=== PATIENT | female | born 1955 | race Caucasian/White ===

== ENCOUNTER 2017-11-08 11:23 | Emergency (ER) | payer MEDICAID ==
[~2017-11-08] VITALS: Ht 152.4 cm; Wt 82.6 kg
[2017-11-08 11:27] VITALS: BP_SYST 152
[2017-11-08 12:29] VITALS: BP_SYST 142
== END 2017-11-08 12:25 | disposition home or self-care (01) ==
LOC: SED 11:23
DX: S93.401A Sprain of unspecified ligament of right ankle, initial encounter (principal); W18.40XA Slipping, tripping and stumbling without falling, unspecified, initial encounter; Y93.G1 Activity, food preparation and clean up; Y92.89 Other specified places as the place of occurrence of the external cause; Y99.8 Other external cause status
CPT/HCPCS: 99284

== ENCOUNTER 2020-10-09 14:34 | Emergency (ER) | payer OTHER, MEDICAID ==
[~2020-10-09] VITALS: Ht 152.4 cm; Wt 95.3 kg
[2020-10-09 14:35] VITALS: BP_SYST 118
[2020-10-09 15:40] VITALS: BP_SYST 118
== END 2020-10-09 15:40 | disposition home or self-care (01) ==
LOC: SED 14:34
DX: S82.492A Other fracture of shaft of left fibula, initial encounter for closed fracture (principal); Z90.710 Acquired absence of both cervix and uterus; W18.39XA Other fall on same level, initial encounter; Y93.89 Activity, other specified; Y92.89 Other specified places as the place of occurrence of the external cause; Y99.8 Other external cause status
CPT/HCPCS: 73564; 99284

== ENCOUNTER 2022-09-05 12:31 | Inpatient (IN) | payer OTHER, MEDICAID ==
[~2022-09-05] VITALS: Ht 154.9 cm; Wt 91.2 kg
[~2022-09-05 12:31] MED LIST: AMIO200T61 PO; APIX5TAB4 PO; FURO-149 PO; METO50TA7 PO; POTA-178 PO; SPIR50TA PO
[2022-09-05 13:36] VITALS: BP_SYST 186
[2022-09-05] MEDS ORDERED: NACL 0.9% 1,000 ML IV ONE (14:30)
[2022-09-05] MEDS ORDERED: FOLIC ACID 1 MG, THIAMINE HCL 100 MG, MAGNESIUM SULFATE 1 GM, MVI 10 ML in NACL 0.9% 1,... IV ONE (14:30)
[2022-09-05] MEDS ORDERED: LORazepam 2 MG/ML VIAL IVP ONE (14:30)
--- NOTE | 2022-09-05 14:30 | NUR ---
ER at bedside examining patient.
--- NOTE | 2022-09-05 14:32 | NUR ---
Pt brought in by self to the ER from home CC tremors and heart palpitations related to alcohol withdrawal. Pt states last intake of alcohol was 1700 yesterday wendy. Pt skin intact, no swelling noted, Denies episodes of vomiting and diarrhea. Pt is nauseated and with headache pain grade 4/10. Pt has history of HTN without medication compliance.
[2022-09-05 14:56] LABS: BASOPHILS # (AUTO) 0.2 K/uL (0.0-0.2); BASOPHILS % (AUTO) 3.6 % (0.0-2.0); HEMATOCRIT 41.5 % (36-48); HEMOGLOBIN 14.3 g/dL (12.0-16.0); LYMPHOCYTES % (AUTO) 20.4 % (20.5-51.5); MEAN CORPUSCULAR HEMOGLOBIN 37 pg (27-31); MEAN CORPUSCULAR HGB CONC 35 % (32-36); MEAN CORPUSCULAR VOLUME 108 fL (79.0-98.0); MONOCYTES # (AUTO) 1.3 K/uL (0.0-1.0); MONOCYTES % (AUTO) 25.9 % (1.7-9.3); NEUTROPHILS # (AUTO) 2.5 K/uL (1.8-7.7); NEUTROPHILS % (AUTO) 50.1 % (40.0-70.0); RED BLOOD CELL COUNT(AUTO) 3.83 MIL/uL (4.2-6.2); RED CELL DISTRIBUTION WIDTH 13.2 % (9.0-15.0); WHITE BLOOD COUNT (AUTO) 4.9 K/uL (4.8-10.8)
[2022-09-05 15:06] LABS: CALCIUM 8.9 mg/dL (8.4-11.0); CREATININE 0.67 mg/dL (0.55-1.30)
[2022-09-05 15:10] LABS: ALBUMIN 3.5 g/dL (3.4-4.8); TOTAL BILIRUBIN 2.7 mg/dL (0.0-1.0)
[2022-09-05 15:12] LABS: PLATELET COUNT (AUTO) 67 K/uL (130-430)
[2022-09-05] MEDS ORDERED: MVI 10 ML VIAL IV ONE (15:43)
[2022-09-05] MEDS ORDERED: FOLIC ACID 5 MG/ML VIAL IV ONE ×2 (15:43→16:15)
[2022-09-05] MEDS ORDERED: MAGNESIUM SULFATE 1 GM/2 ML VIAL ONE (15:43)
[2022-09-05] MEDS ORDERED: THIAMINE HCL 100 MG/ML VIAL ONE (15:43)
--- NOTE | 2022-09-05 18:45 | NUR ---
Admit bed requested Patient will be admitted to care of . Admitted to ICU unit. Diagnosis ALCOHOL WITHDRAWAL SYNDROME Inpatient (Yes or No) YES Observation (Yes or No) NO Orientation concerns or request close to nursing station (Yes or No) NO Covid Status NEGATIVE On vent or bipap NO Isolation requirements NONE Needs a sitter NO From Home (Yes or if No enter name of facility) YES Requires Dialysis (Yes or No) NO Med Rec Completed (Yes of No) YES
--- NOTE | 2022-09-05 20:32 | NUR ---
Paged Dr. Garcia for patient having elevated HR 154, BP 147/78
[2022-09-05] MEDS ORDERED: APIXABAN 2.5 MG TABLET PO SCH (21:00)
[2022-09-05] MEDS ORDERED: FUROSEMIDE 40 MG TABLET PO SCH (21:00)
[2022-09-05] MEDS: SPIRONOLACTONE 50 MG TABLET (ALDACTONE) PO SCH (21:00)
--- NOTE | 2022-09-05 21:38 | NUR ---
Admit bed requested Patient will be admitted to care of . Admitted to TELE unit. Diagnosis ALCOHOL WITHDRAWAL SYNDROME Inpatient (Yes or No) YES Observation (Yes or No) NO Orientation concerns or request close to nursing station (Yes or No) YES Covid Status NEGATIVE On vent or bipap NO Isolation requirements NONE Needs a sitter NO
[2022-09-05] MEDS ORDERED: chlordiazePOXIDE HCL 25 MG CAPSULE ONE (21:41)
[2022-09-05] MEDS: METOPROLOL TARTRATE 50 MG TABLET PO SCH (21:45)
[2022-09-05] MEDS: chlordiazePOXIDE HCL 25 MG CAPSULE PO PRN (22:31)
[2022-09-05] MEDS: cloNIDine HCL 0.1 MG TABLET PO SCH (22:35)
[2022-09-05 23:12] LABS: BILIRUBIN,URINE NEGATIVE (NEGATIVE); BLOOD, URINE TRACE (NEGATIVE); CLARITY/URINE CLEAR (CLEAR); COLOR,URINE YELLOW (YELLOW); GLUCOSE,URINE NEGATIVE (NEGATIVE); KETONES,URINE TRACE (NEGATIVE); LEUKOCYTE ESTERASE ,URINE NEGATIVE (NEGATIVE); NITRITE, URINE NEGATIVE (NEGATIVE); PROTEIN URINE NEGATIVE (NEGATIVE)
[2022-09-05 23:14] VITALS: BP_SYST 132
[2022-09-06] VITALS: BP_SYST 127
[2022-09-06 00:22] LABS: RBC,URINE 0-3 /HPF (0-3); WBC,URINE 0-3 /HPF (0-3)
[2022-09-06 07:30] VITALS: BP_SYST 149
[2022-09-06 07:33] LABS: CALCIUM 8.3 mg/dL (8.4-11.0); CREATININE 0.52 mg/dL (0.55-1.30)
[2022-09-06 07:38] LABS: BASOPHILS # (AUTO) 0.1 K/uL (0.0-0.2); BASOPHILS % (AUTO) 2.9 % (0.0-2.0); EOSINOPHILS % (AUTO) 1.4 % (0.0-4.0); HEMATOCRIT 37.1 % (36-48); HEMOGLOBIN 12.8 g/dL (12.0-16.0); LYMPHOCYTES % (AUTO) 29.4 % (20.5-51.5); MEAN CORPUSCULAR HEMOGLOBIN 38 pg (27-31); MEAN CORPUSCULAR HGB CONC 34 % (32-36); MEAN CORPUSCULAR VOLUME 110 fL (79.0-98.0); MONOCYTES # (AUTO) 0.9 K/uL (0.0-1.0); MONOCYTES % (AUTO) 24.4 % (1.7-9.3); NEUTROPHILS # (AUTO) 1.5 K/uL (1.8-7.7); NEUTROPHILS % (AUTO) 41.9 % (40.0-70.0); PLATELET COUNT (AUTO) 58 K/uL (130-430); RED BLOOD CELL COUNT(AUTO) 3.38 MIL/uL (4.2-6.2); RED CELL DISTRIBUTION WIDTH 13.4 % (9.0-15.0)
[2022-09-06 08:28] LABS: WHITE BLOOD COUNT (AUTO) 3.5 K/uL (4.8-10.8)
[2022-09-06] MEDS ORDERED: METOPROLOL SUCCINATE 50 MG TAB.SR.24H (TOPROL XL) PO SCH (09:00)
[2022-09-06] MEDS ORDERED: APIXABAN 2.5 MG TABLET PO SCH (09:00)
--- NOTE | 2022-09-06 10:12 | NUR ---
OPENING LATE ENTRY DUE TO PT CARE 07:30- IN BED EYES OPEN. DOES NOT APPEAR TO BE IN DISTRESS. DENIES PAIN AT THIS TIME. INTRUCTED NO FOOD AND DRINK UNTIL AFTER ULTRASOUND OF ABDOMEN. PLAN OF CARE DISCUSSED WITH PT. PT VERBALIZED UNDERSTANDING
[2022-09-06] MEDS: ACETAMINOPHEN 325 MG TABLET PO PRN (11:42)
[2022-09-06 12:00] VITALS: BP_SYST 156
--- NOTE | 2022-09-06 12:31 | NUR ---
Report receivedfrom Mara for continuity of care.
[2022-09-06] MEDS: cloNIDine HCL 0.1 MG TABLET PO SCH ×2 (13:05→21:38)
[2022-09-06] MEDS: SPIRONOLACTONE 50 MG TABLET (ALDACTONE) PO SCH ×2 (13:06→21:37)
[2022-09-06] MEDS: AMIODARONE HCL 200 MG TABLET PO SCH (13:06)
[2022-09-06] MEDS: POTASSIUM CHLORIDE 10 MEQ TAB.PRT.SR PO SCH (13:06)
[2022-09-06] MEDS: METOPROLOL TARTRATE 50 MG TABLET PO SCH ×2 (13:20→21:39)
[2022-09-06 16:00] VITALS: BP_SYST 138
[2022-09-06 20:00] VITALS: BP_SYST 141
[2022-09-06] MEDS ORDERED: ENOXAPARIN SODIUM 40 MG/0.4 ML SYRINGE SUBCUT SCH (21:00)
[2022-09-06] MEDS: LIDOCAINE PATCH 5% 1 EA TP SCH (21:38)
[2022-09-06] MEDS: THIAMINE HCL 100 MG TABLET GT SCH (21:47)
[2022-09-06] MEDS ORDERED: KCL 20 mEq in 100 mL (PREMIX) 100 ML IV ONE (21:48)
[2022-09-06] MEDS: KCL 20 mEq in 0.45% NS 1000 mL 1,000 ML IV SCH (21:48)
[2022-09-07 07:55] VITALS: BP_SYST 135
--- NOTE | 2022-09-07 08:17 | NUR ---
PAGED AND SPOKE TO TO OBTAIN DIET ORDER. DIET ORDERED.
[2022-09-07] MEDS: cloNIDine HCL 0.1 MG TABLET PO SCH ×2 (09:00→21:10)
[2022-09-07] MEDS: SPIRONOLACTONE 50 MG TABLET (ALDACTONE) PO SCH ×2 (09:35→21:10)
[2022-09-07] MEDS: METOPROLOL TARTRATE 50 MG TABLET PO SCH ×2 (09:35→21:09)
[2022-09-07] MEDS: ACETAMINOPHEN 325 MG TABLET PO PRN (09:36)
[2022-09-07] MEDS: chlordiazePOXIDE HCL 25 MG CAPSULE PO PRN (09:36)
[2022-09-07] MEDS: POTASSIUM CHLORIDE 10 MEQ TAB.PRT.SR PO SCH (09:36)
[2022-09-07] MEDS: THIAMINE HCL 100 MG TABLET GT SCH (09:36)
[2022-09-07] MEDS: AMIODARONE HCL 200 MG TABLET PO SCH (09:37)
[2022-09-07] MEDS: RIVAROXABAN 10 MG TABLET PO SCH (09:38)
[2022-09-07 11:12] VITALS: BP_SYST 134
[2022-09-07] MEDS: KCL 20 mEq in 0.45% NS 1000 mL 1,000 ML IV SCH (14:28)
[2022-09-07 17:00] VITALS: BP_SYST 148
[2022-09-07 20:00] VITALS: BP_SYST 142
[2022-09-07] MEDS: LIDOCAINE PATCH 5% 1 EA TP SCH (21:10)
[2022-09-08] VITALS: BP_SYST 117
[2022-09-08] MEDS: KCL 20 mEq in 0.45% NS 1000 mL 1,000 ML IV SCH (05:27)
[2022-09-08 07:03] LABS: CREATININE 0.55 mg/dL (0.55-1.30)
[2022-09-08 07:33] LABS: HEMATOCRIT 40.9 % (36-48); HEMOGLOBIN 13.6 g/dL (12.0-16.0); MEAN CORPUSCULAR HEMOGLOBIN 37 pg (27-31); MEAN CORPUSCULAR HGB CONC 33 % (32-36); MEAN CORPUSCULAR VOLUME 112 fL (79.0-98.0); PLATELET COUNT (AUTO) 71 K/uL (130-430); RED BLOOD CELL COUNT(AUTO) 3.65 MIL/uL (4.2-6.2); RED CELL DISTRIBUTION WIDTH 13.1 % (9.0-15.0); WHITE BLOOD COUNT (AUTO) 3.8 K/uL (4.8-10.8)
--- NOTE | 2022-09-08 08:00 | NUR ---
Initial notes Received patient awake in bed, respiration even and unlabored. No c/o pain /SOB, sinus briana on monitor. IV infusing to right forearm patent, no signs of infiltration. All safety precaution secured, bed in low position, and call light w/in reached, continue to monitor.
[2022-09-08 08:02] VITALS: BP_SYST 142
[2022-09-08] MEDS: AMIODARONE HCL 200 MG TABLET PO SCH (08:12)
[2022-09-08] MEDS: POTASSIUM CHLORIDE 10 MEQ TAB.PRT.SR PO SCH (08:13)
[2022-09-08] MEDS: THIAMINE HCL 100 MG TABLET GT SCH (08:13)
[2022-09-08] MEDS: SPIRONOLACTONE 50 MG TABLET (ALDACTONE) PO SCH (08:14)
[2022-09-08] MEDS: METOPROLOL TARTRATE 50 MG TABLET PO SCH (08:14)
[2022-09-08] MEDS: cloNIDine HCL 0.1 MG TABLET PO SCH (08:14)
[2022-09-08] MEDS: RIVAROXABAN 10 MG TABLET PO SCH (08:16)
[2022-09-08 12:00] VITALS: BP_SYST 126
[2022-09-08 12:50] VITALS: BP_SYST 121
[2022-09-08 13:10] LABS: BAND % (MANUAL) 2 % (0-6); BASOPHILS % (MANUAL) 0 % (0-2); EOSINOPHILS % (MANUAL) 5 % (0-7); LYMPHOCYTES % (MANUAL) 33 % (20-46); MONOCYTES % (MANUAL) 19 % (0-11)
[2022-09-08] MEDS ORDERED: FLU VACC QS2022-23(6MOS UP)/PF 0.5 ML/SYR SYRINGE I.M. ONE (13:30)
--- NOTE | 2022-09-08 14:06 | NUR ---
D/C Patient Patient D/C home per MD order. Instructions given to patient, educational information per diagnosis, prescription pad medication given to patient to be filled to outside pharmacy. Patient verbalized understanding. MD discussed with patient the results and treatment provided. Flu vaccine given to patient per request. Patient in stable condition, no c/o of pain/SOB. ID band removed. IV catheter removed, intact and dressing applied, no active bleeding. All belongings sent with patient, escorted to waiting area via w/c by staff.
--- NOTE | 2022-09-08 14:25 | NUR ---
Patient escorted off unit via wheelchair at this time.
--- NOTE | 2022-09-08 14:29 | NUR ---
Patient waiting in room waiting for daughter
--- NOTE | 2022-09-08 14:40 | NUR ---
Patient escorted off unit via wheelchair to parking lot for daughter to clam picker
== END 2022-09-08 14:40 | disposition home or self-care (01) | DRG 433 ==
LOC: SED 12:31 → UNDOADMIN 21:27 → SMU 21:27 → STU 21:37
PROVIDERS: ADMIT Family Medicine; ATTEND Family Medicine
DX: K70.10 Alcoholic hepatitis without ascites (principal); F10.239 Alcohol dependence with withdrawal, unspecified; I10 Essential (primary) hypertension; F41.9 Anxiety disorder, unspecified; Z20.822 Contact with and (suspected) exposure to COVID-19; I48.91 Unspecified atrial fibrillation; D69.6 Thrombocytopenia, unspecified; G40.909 Epilepsy, unspecified, not intractable, without status epilepticus; Y90.9 Presence of alcohol in blood, level not specified; Z79.01 Long term (current) use of anticoagulants
CPT/HCPCS: 36415; 76700-TC; 80048; 80053; 81000; 83735; 85007; 85025; 85027; 87081; 93005; 96365; 99285; G0378; J2060; J3411; J3475; J3480; J3490; J7030

== ENCOUNTER 2022-10-14 10:14 | Emergency (ER) | payer OTHER, MEDICAID ==
[~2022-10-14] VITALS: Ht 154.9 cm; Wt 90.7 kg
[2022-10-14 10:15] VITALS: BP_SYST 146
--- NOTE | 2022-10-14 10:15 | NUR ---
BROUGHT BACK TO BED #7 AND TRIAGED. REPORT GIVEN TO ZAKIA
--- NOTE | 2022-10-14 10:20 | NUR ---
ED DR. SEBASTIAN AT BEDSIDE EXAMINING PT.
[2022-10-14] MEDS ORDERED: KETOROLAC TROMETHAMINE 60 MG/2 ML VIAL IM ONE (10:30)
--- NOTE | 2022-10-14 10:30 | NUR ---
PT PRESENTS TO ED WITH LEFT UPPER RIB PAIN THAT RADIATES TO THE BACK. PT. STATES SHE HAD THE PAIN AFTER OPENING A DOOR 2 DAYS AGO AND HAS TAKEN 1 ADVIL AND THE PAIN IS STILL NOT RELIEVED. PT STATES HER PAIN IS 8 OUT OF 10 AND IT FEELS WORSE WHEN SHE STRAINS OR LAUGHS OR BREATHES IN. VSS, EVEN UNLABORED RESPIRATIONS SKIN WARM INTACT ,NAD.
[2022-10-14 10:50] LABS: BASOPHILS % (AUTO) 0.2 % (0.0-2.0); EOSINOPHILS # (AUTO) 0.2 K/uL (0.0-0.4); EOSINOPHILS % (AUTO) 4.1 % (0.0-4.0); HEMATOCRIT 42.4 % (36-48); HEMOGLOBIN 14.4 g/dL (12.0-16.0); LYMPHOCYTES # (AUTO) 1.6 K/uL (1.0-5.5); LYMPHOCYTES % (AUTO) 35.1 % (20.5-51.5); MEAN CORPUSCULAR HEMOGLOBIN 37 pg (27-31); MEAN CORPUSCULAR HGB CONC 34 % (32-36); MEAN CORPUSCULAR VOLUME 108 fL (79.0-98.0); MONOCYTES # (AUTO) 0.6 K/uL (0.0-1.0); NEUTROPHILS # (AUTO) 2.3 K/uL (1.8-7.7); NEUTROPHILS % (AUTO) 48.6 % (40.0-70.0); PLATELET COUNT (AUTO) 143 K/uL (130-430); RED BLOOD CELL COUNT(AUTO) 3.92 MIL/uL (4.2-6.2); RED CELL DISTRIBUTION WIDTH 12.7 % (9.0-15.0); WHITE BLOOD COUNT (AUTO) 4.7 K/uL (4.8-10.8)
--- NOTE | 2022-10-14 10:57 | NUR ---
Savita medina in ED - 10/14/22 at 1140 by [email or web address] JUAN Carpenter at bedside assessing pt.
--- NOTE | 2022-10-14 10:57 | NUR ---
DR SEBASTIAN AT BEDSIDE ASSESSING PT
[2022-10-14 11:07] LABS: ANION GAP 11 (5-15); CALCIUM 9.5 mg/dL (8.4-11.0); CHLORIDE 104 mmol/L (98-107); CREATININE 0.68 mg/dL (0.55-1.30); GLUCOSE 104 mg/dL (70-99); UREA NITROGEN, BLOOD 6 mg/dL (8-21)
[2022-10-14 11:10] LABS: ALANINE AMINOTRANSFERASE 23 U/L (12-78); ALBUMIN 3.4 g/dL (3.4-4.8); ALCOHOL, BLOOD < 3 mg/dL (<10); ASPARTATE AMINOTRANSFERASE 40 U/L (10-37); GFR AFRICAN AMERICAN 111 mL/min (>90); LIPASE 74 U/L (73-393); TOTAL BILIRUBIN 1.1 mg/dL (0.0-1.0)
--- NOTE | 2022-10-14 12:15 | NUR ---
pt is awaitng discharge. nad, vss, even unlabored respirations.
--- NOTE | 2022-10-14 12:33 | NUR ---
Patient given written and verbal discharge instructions and verbalizes understanding. ER MD discussed with patient the results and treatment provided. Patient in stable condition. ID arm band removed. No Rx given. Patient educated on pain management and to follow up with PMD. Pain Scale 0/10 Opportunity for questions provided and answered. Medication side effect fact sheet provided.
[2022-10-14 12:34] VITALS: BP_SYST 125
== END 2022-10-14 12:33 | disposition home or self-care (01) ==
LOC: SED 10:14
DX: R10.12 Left upper quadrant pain (principal); Z79.899 Other long term (current) drug therapy
CPT/HCPCS: 99285; 71045; 80053; 83690; 85025; 84484; 36415; 93005; 96372; 81002; G0482; J1885

== ENCOUNTER 2024-03-23 13:04 | Emergency (ER) | payer OTHER, MEDICAID ==
[~2024-03-23] VITALS: Ht 154.9 cm; Wt 79.4 kg
[2024-03-23 13:14] VITALS: BP_SYST 104; PULSE 91; RESP 20; TEMP 97.5; O2SAT 95
[2024-03-23] MEDS ORDERED: NIRM1TAB9 PO (13:29)
[2024-03-23 13:48] VITALS: BP_SYST 104; PULSE 91; RESP 20; TEMP 97.5; O2SAT 95
== END 2024-03-23 14:19 | disposition home or self-care (01) ==
LOC: SED 13:04
DX: U07.1 COVID-19 (principal); I48.91 Unspecified atrial fibrillation
CPT/HCPCS: 99283